=== PATIENT | female | born 1990 | race Caucasian/White ===

== ENCOUNTER 2022-06-02 20:18 | Emergency (ER) | payer MEDICAID, SELFPAY ==
--- NOTE | ~2022-06-02 | XR_ITS ---
EXAMINATION: XR HAND, RIGHT CLINICAL INFORMATION: Puncture wound COMPARISON: None TECHNIQUE: PA, lateral, and oblique views of the right hand. FINDINGS: There is a 1 mm x 0.2 mm radiopaque foreign body seen in the distal and dorsal radial aspect of the soft tissues of the middle finger. The bones and soft tissues are otherwise normal. No fracture. Alignment is anatomic. Joint spaces are maintained. No erosions . XR/XR hand RT 2V IMPRESSION: 1 mm x 0.2 mm radiopaque foreign body in the soft tissues of the middle finger.
--- NOTE | 2022-06-02 20:49 | ED_ITS ---
HPI - Extremity Injury (Upper) General Chief Complaint: Wound/Laceration <MARISSA Seaman - Last Filed: 06/02/22 20:53> Stated Complaint: Drilled into hand <MARISSA Seaman - Last Filed: 06/02/22 20:53> Time Seen by Provider: 06/02/22 23:33 <MARISSA Seaman - Last Filed: 06/02/22 20:53> Source: patient <Oumou Lehman MD - Last Filed: 06/03/22 00:23> Mode of arrival: ambulatory <Oumou Lehman MD - Last Filed: 06/03/22 00:23> Limitations: no limitations <Oumou Lehman MD - Last Filed: 06/03/22 00:23> History of Present Illness HPI narrative: 31-year-old female left-hand dominant presented after having a puncture wound to the palm of the right hand while using the electrical drill, patient stated that it did not go through through just superficial. No injury to the fingers. <Oumou Lehman MD - Last Filed: 06/03/22 00:23> Related Data Home Medications: Previous Rx's Medication Instructions Recorded doxycycline hyclate 100 mg tablet 100 mg PO BID #14 tabs 06/02/22 <MARISSA Seaman - Last Filed: 06/02/22 20:53> Allergies/Adverse Reactions: Allergies Allergy/AdvReac Type Severity Reaction Status Date / Time milk Allergy Unknown Unknown Verified 06/02/22 20:53 <MARISSA Seaman - Last Filed: 06/02/22 20:53> Review of Systems Review of Systems: All other systems are reviewed and are negative Constitutional: Reports as per HPI and Reports no additional constitutional complaints Eyes: Reports as per HPI and Reports no additional eye complaints Reports system reviewed and no additional complaints, except as documented Cardiovascular: Reports as per HPI and Reports no additional cardiovascular complaints Respiratory: Reports as per HPI and Reports no additional respiratory complaints Gastrointestinal: Reports as per HPI and Reports no additional gastrointestinal complaints Genitourinary: Reports no additional female genitourinary complaints Musculoskeletal: Reports no additional musculoskeletal complaints Skin/Breast: Reports system reviewed and no additional complaints, except as docu Psychiatric: Reports no additional psychiatric complaints Endocrine: Reports no additional endocrine complaints Hematologic/Lymphatic: Reports no additional hematologic/lymphatic complaints Allergic/Immunologic: Reports no additional allergic/immunologic complaints Reports system reviewed and no additional complaints, except as documented and Reports Abnormal speech present <Oumou Lehman MD - Last Filed: 06/03/22 00:23> [facility] Social History Social History: Social History Advance Directives: No Advance Directives Information Provided: No <MARISSA Seaman - Last Filed: 06/02/22 20:53> Physical Exam Vital Signs: Vital Signs: Last Vital Signs Temp 98.0 F 06/02/22 20:50 Pulse 78 06/02/22 22:57 Resp 16 06/02/22 20:50 BP 138/46 L 06/02/22 22:57 Pulse Ox 99 06/02/22 22:57 O2 Del Method 06/02/22 22:57 BMI result Body Mass Index 25.8 <MARISSA Seaman - Last Filed: 06/02/22 20:53> Vital Signs: Last Vital Signs Temp 98.0 F 06/02/22 20:50 Pulse 78 06/02/22 22:57 Resp 16 06/02/22 20:50 BP 138/46 L 06/02/22 22:57 Pulse Ox 99 06/02/22 22:57 O2 Del Method 06/02/22 22:57 BMI result Body Mass Index 25.8 Vital signs have been reviewed as appeared to be correct. Blood pressure normal. Heart rate normal. Respiration rate normal. Temperature normal. Oxygen saturation normal. <Oumou Lehman MD - Last Filed: 06/03/22 00:23> Appearance: Alert. Oriented X3. No acute distress. Head: Normal external exam. Normocephalic. Atraumatic. No Sawyer signs noted. No raccoon eyes noted Eyes: PERRLA. EOMI. Conjunctiva and sclera normal. Eyelids normal. ENT: TM's Normal. Pharynx normal. Uvula midline. Moist mucous membranes. No trismus noted. No drooling noted. No muffled voice noted. Neck: Normal inspection. Neck supple. FROM. No adenopathy. Thyroid Normal. No meningeal signs. No neck mass noted. CVS: Normal heart rate and rhythm. Heart sound normal. No murmurs noted. Pulses normal throughout. Respiratory: No respiratory distress. Painless inspiration. Breath sounds normal. No wheezes/rales/rhonchi noted. Chest nontender. No accessory muscle usage noted or decreased air movement noted. Abdomen: Soft and nontender. Bowel sounds normal in all 4 quadrants. No dist ention noted. No organomegaly noted. No visible injury noted. Back: No CVA tenderness. Full range of motion noted. Skin: Skin warm and dry. Normal skin color. Normal skin turgor. No rashes/lesi ons/lacerations noted. Extremities: Right hand exam: 1 x 1 cm area of a puncture wound to the palm of the right hand with adipose fat, patient is able to do full movement of the right hand, decrease light touch sensation on in a radial side of the index and ring finger, no deformity, no foreign body appreciated in particular at the distal of the right middle finger as stated on the x-ray. Otherwise neurovascularly intact. Neuro: Oriented X 3. Cranial nerve exam: II-XII are grossly intact No motor deficit. No sensory deficit. Reflexes normal. <Oumou Lehman MD - Last Filed: 06/03/22 00:23> Course Course Course Narrative: RME--31yo F c/o puncture wound to R hand s/p drilling into hand accidentally [employer]. Tetanus unknown. Small puncture wound to palmar aspect R hand with small amount subqu tissue noted. No active bleeding, NV intact XRs, Tetanus ordered in triage <MARISSA Seaman - Last Filed: 06/02/22 20:53> Reevaluation(s) Reevaluation #1: Patient received tetanus shot while she is in the ED, no sign of infection, no active bleeding, start the patient on doxycycline empirically. Patient was given follow-[facility] with [facility]. <Oumou Lehman MD - Last Filed: 06/03/22 00:23> Time: 00:20 <Oumou Lehman MD - Last Filed: 06/03/22 00:23> Medications Administered Discontinued Medications Generic Name Dose Route Start Last Admin Trade Name Freq PRN Reason Stop Dose Admin Diphtheria/Tetanus/Acell Pertussis 0.5 ml 06/02/22 20:52 06/02/22 21:44 Diphth,Pertus(Acell),Tet Adult 0.5 Ml Syringe IM 06/02/22 20:53 0.5 ml .ONCE ONE Administration <MARISSA Seaman - Last Filed: 06/02/22 20:53> Medications Administered Discontinued Medications Generic Name Dose Route Start Last Admin Trade Name Francisca PRN Reason Stop Dose Admin Diphtheria/Tetanus/Acell Pertussis 0.5 ml 06/02/22 20:52 06/02/22 21:44 Diphth,Pertus(Acell),Tet Adult 0.5 Ml Syringe IM 06/02/22 20:53 0.5 ml .ONCE ONE Administration <Oumou Lehman MD - Last Filed: 06/03/22 00:23> Medical Decision Making Differential Diagnosis Differential Diagnoses: The differential diagnosis associated with the presentation includes (Right hand puncture wound, bone fracture, infection of the right hand.) <Oumou Lehman MD - Last Filed: 06/03/22 00:23> Independent Interpretation I performed an independent interpretation of an: Plain X-Ray (1 mm x 0.2 mm radiopaque foreign body in the soft tissues of the middle finger. ) <Oumou Lehman MD - Last Filed: 06/03/22 00:23> Discharge Plan Discharge Clinical Impression: Puncture wound of hand, right <MARISSA Seaman - Last Filed: 06/02/22 20:53> Patient Disposition: Home, Self-Care <MARISSA Seaman - Last Filed: 06/02/22 20:53> Instructions: Puncture Wound (ED) <MARISSA Seaman - Last Filed: 06/02/22 20:53> Prescriptions: New doxycycline hyclate 100 mg tablet 100 mg PO BID Qty: 14 0RF <MARISSA Seaman - Last Filed: 06/02/22 20:53> Referrals: Marylu Chawla MD [Physician] - <MARISSA Seaman - Last Filed: 06/02/22 20:53> Interventions: ED Discharge Assessment Last Done: 06/03/22 00:11 <MARISSA Seaman - Last Filed: 06/02/22 20:53> Discharge Date/Time: 06/03/22 00:12 <MARISSA Seaman - Last Filed: 06/02/22 20:53>
[2022-06-02 20:50] VITALS: BP 95/45; PULSE 65; RESP 16; TEMP 36.7; O2SAT 96; BMI 25.8
[2022-06-02] MEDS: Diphth,Pertus(ACell),Tet Adult 0.5 ML SYRINGE IM (21:44)
[2022-06-02 22:57] VITALS: BP 138/46; PULSE 78; O2SAT 99
--- NOTE | 2022-06-02 23:59 | ED.WOUNDLAC ---
HPI - Wound/Laceration General Chief Complaint: Wound/Laceration Stated Complaint: Drilled into hand Time Seen by Provider: 06/02/22 23:33 Source: patient Mode of arrival: ambulatory Limitations: no limitations History of Present Illness HPI narrative: 31-year-old female left hand dominant came in after had a puncture wound to the right hand with electrical drill Related Data Previous Rx's Medication Instructions Recorded doxycycline hyclate 100 mg tablet 100 mg PO BID #14 tabs 06/02/22 Allergies Allergy/AdvReac Type Severity Reaction Status Date / Time milk Allergy Unknown Unknown Verified 06/02/22 20:53 PMFSH Social History Social History Advance Directives: No Advance Directives Information Provided: No Physical Exam Vital Signs: Vital Signs: Last Vital Signs Temp 98.0 F 06/02/22 20:50 Pulse 78 06/02/22 22:57 Resp 16 06/02/22 20:50 BP 138/46 L 06/02/22 22:57 Pulse Ox 99 06/02/22 22:57 O2 Del Method 06/02/22 22:57 BMI result Body Mass Index 25.8 Medications Administered Discontinued Medications Generic Name Dose Route Start Last Admin Trade Name Freq PRN Reason Stop Dose Admin Diphtheria/Tetanus/Acell Pertussis 0.5 ml 06/02/22 20:52 06/02/22 21:44 Diphth,Pertus(Acell),Tet Adult 0.5 Ml Syringe IM 06/02/22 20:53 0.5 ml .ONCE ONE Administration Discharge Plan Discharge Clinical Impression: Puncture wound of hand, right Patient Disposition: Home, Self-Care Instructions: Puncture Wound (ED) Prescriptions: New doxycycline hyclate 100 mg tablet 100 mg PO BID Qty: 14 0RF Referrals: Marylu Chawla MD [Physician] -
== END 2022-06-03 00:12 | disposition home or self-care (01) ==
PROVIDERS: Emergency Provider Emergency Medicine
DX: S61.431A Puncture wound without foreign body of right hand, initial encounter (principal); W29.8XXA Contact with other powered hand tools and household machinery, initial encounter; Y93.9 Activity, unspecified; Y92.039 Unspecified place in apartment as the place of occurrence of the external cause; Y99.9 Unspecified external cause status; Z23 Encounter for immunization
CPT/HCPCS: 73120; 90471; 90715; 99283; 99284

== ENCOUNTER → 2022-06-10 08:13 | Outpatient (BNVA) | payer MEDICAID, SELFPAY | PROVIDERS: PCP Family Medicine; Visit Provider Physician Assistant | DX: S61.431A Puncture wound without foreign body of right hand, initial encounter (principal) | CPT/HCPCS: 99202 ==